=== PATIENT | female | born 1990 | race Asian ===

== ENCOUNTER 2016-10-30 08:49 | Inpatient (IN) | payer OTHER ==
[2016-10-30 10:58] VITALS: BMI 21.4
--- NOTE | 2016-10-30 13:05 | HP ---
COWS - Scale Resting Pulse: 1= [place] 81-100 Sweatin=Flushed/Facial Moisture Restless Observation: 1= Difficult to Sit Still Pupil Size: 0= Normal to Room Light Bone or Joint Aches: 2= Severe Diffuse Aches Runny Nose/ Eye Tearin= Runny Nose/Eyes GI Upset > 30mins: 1= Stomach Cramp Tremor Observation: 2= Slight Tremor Visible Yawning Observation: 2= >3x During Session Anxiety or Irritability: 2=Irritable/Anxious Goose Flesh Skin: 3=Piloerection COWS Score: 18 Admission ROS S - HPI Chief Complaint: i relapsed and need to be here. Allergies/Adverse Reactions: Allergies Allergy/AdvReac Type Severity Reaction Status Date / Time Penicillins Allergy Mild Hives Verified 10/30/16 10:34 History of Present Illness: pt is a 25yr old female with a history of opioid dependence seeking detox for treatment. Exam Limitations: No Limitations - Ebola screening Have you traveled outside of the country in the last 21 days: No Have you had contact with anyone from an Ebola affected area: No Have you been sick,other than usual withdrawal symptoms: No - Review of Systems Constitutional: Chills, Loss of Appetite, Night Sweats EENT: reports: Tearing, Nose Congestion Respiratory: reports: No Symptoms reported Cardiac: reports: Lightheadedness GI: reports: Constipated, Poor Appetite, Poor Fluid Intake : reports: No Symptoms Reported, Other (UTI s/s) Musculoskeletal: reports: No Symptoms Reported Integumentary: reports: Flushing, Sweating Neuro: reports: Tingling Endocrine: reports: Excessive Sweating, Flushing, Intolerance to Cold, Intolerance to Heat Hematology: reports: No Symptoms Reported Psychiatric: reports: Judgement Intact, Mood/Affect Appropiate, Orientated x3, Agitated, Anxious Other Systems: Reviewed and Negative Patient History - Patient Medical History Hx Anemia: Yes (IRON SUPPLEMENTS SPORADICALLY) Hx Asthma: No Hx Chronic Obstructive Pulmonary Disease (COPD): No Hx Cancer: No Hx Cardiac Disorders: No Hx Congestive Heart Failure: No Hx Hypertension: No Hx Hypercholesterolemia: No Hx Pacemaker: No HX Cerebrovascular Accident: No Hx Seizures: No Hx Dementia: No Hx Diabetes: No Hx Gastrointestinal Disorders: Yes (ulcer) Hx Liver Disease: No Hx Genitourinary Disorders: No Hx Sexually Transmitted Disorders: No Hx Renal Disease (ESRD): No Hx Thyroid Disease: No Hx Human Immunodeficiency Virus (HIV): No (NEGATIVE HX, LAST TESTED IN SUMMER 2014) Hx Hepatitis C: No Hx Depression: Yes Hx Suicide Attempt: Yes (tried to cut more 09/2016; denies any S/H ideation) Hx Bipolar Disorder: No Hx Schizophrenia: No - Patient Surgical History Past Surgical History: Yes Hx Neurologic Surgery: No Hx Cataract Extraction: No Hx Cardiac Surgery: No Hx Lung Surgery: No Hx Breast Surgery: No Hx Breast Biopsy: No Hx Abdominal Surgery: Yes (Gastric sleeve 2010) Hx Appendectomy: No Hx Cholecystectomy: No Hx Genitourinary Surgery: No Hx Section: No Hx Orthopedic Surgery: No Hx Hysterectomy: No Anesthesia Reaction: No - PPD History Previous Implant?: Yes Documented Results: Negative w/proof Implanted On Prior R Admission?: Yes Results: 0 mm PPD to be Administered?: Yes - Reproductive History Patient is a Female of Child Bearing Age (11 -55 yrs old): Yes Last Menstrual Period: 09/05/16 Patient : No - Smoking Cessation Smoking history: Current every day smoker Have you smoked in the past 12 months: Yes Aproximately how many cigarettes per day: 10 Cigars Per Day: 0 Hx Chewing Tobacco Use: No Initiated information on smoking cessation: Yes 'Breaking Loose' booklet given: 10/30/16 - Substance & Tx. History Hx Alcohol Use: No Hx Substance Use: Yes Substance Use Type: Marijuana, Opiates Hx Substance Use Treatment: Yes - Substances Abused Percocet Route: Oral Frequency: Daily Amount used: 7 tabs. (10 mg.) Age of first use: 20 Date of Last Use: 10/30/16 Marijuana Route: Smoking Frequency: Daily Amount used: $10 Age of first use: 14 Date of Last Use: 10/29/16 Ambien Route: Oral Frequency: 1-2 times per week Amount used: 3 tabs. (10 mg.) Age of first use: 21 Date of Last Use: 10/24/16 Family Disease History - Family Disease History Family Disease History: Diabetes: Father (htn), Mother (htn , thyroid disease ) Admission Physical Exam BHS - Vital Signs Vital Signs: Vital Signs - 24 hr 10/30/16 10:39 Temperature 97.9 F Pulse Rate 94 H Respiratory 18 Rate Blood Pressure 127/75 - Physical General Appearance: Yes: Appropriately Dressed, Mild Distress, Thin, Tremorous, Irritable, Sweating, Anxious HEENTM: Yes: Normal Voice Respiratory: Yes: Lungs Clear, Normal Breath Sounds, No Respiratory Distress Neck: Yes: No masses,lesions,Nodules Breast: Yes: Within Normal Limits Cardiology: Yes: Regular Rhythm, Regular Rate, S1, S2 Abdominal: Yes: Normal Bowel Sounds, Non Tender, Soft Genitourinary: Yes: Within Normal Limits Back: Yes: Normal Inspection Musculoskeletal: Yes: full range of Motion Extremities: Yes: Normal Capillary Refill, Normal Inspection, Tremors Neurological: Yes: Fully Oriented, Alert, Normal Response Integumentary: Yes: Normal Color Lymphatic: Yes: Within Normal Limits - Diagnostic (1) Opioid dependence with withdrawal Current Visit: Yes Status: Chronic (2) Cannabis dependence, uncomplicated Current Visit: Yes Status: Chronic (3) GERD (gastroesophageal reflux disease) Current Visit: Yes Status: Chronic Qualifiers: Esophagitis presence: without esophagitis Qualified Code(s): K21.9 - Gastro-esophageal reflux disease without esophagitis (4) Nicotine dependence Current Visit: Yes Status: Chronic Qualifiers: Nicotine product type: cigarettes Substance use status: uncomplicated Qualified Code(s): F17.210 - Nicotine dependence, cigarettes, uncomplicated (5) S/P bariatric surgery Current Visit: No Status: Suspected (6) UTI (urinary tract infection) Current Visit: Yes Status: Acute Qualifiers: Encounter type: initial encounter Cleared for Admission [facility] - Detox or Rehab [facility] Level of Care: Medically Managed Detox Regimen/Protocol: Methadone [facility] Breath Alcohol Content Breath Alcohol Content: 0 Urine Pregancy Test - Result Urine Test Results: Negative- NO Line Present Urine Drug Screen - Results Drug Screen Negative: No Urine Drug Screen Results: THC-Marijuana, OPI-Opiates, TCA-Tricyclic Antidepress , OXY-Oxycodone
[2016-10-30] MEDS ORDERED: P-EPHED 60MG/TRIPROLIDI 2.5MG TABLET PO PRN (13:15)
[2016-10-30] MEDS ORDERED: IBUPROFEN 400 MG TABLET (FP) PO PRN (13:15)
[2016-10-30] MEDS ORDERED: guaiFENesin/D-METHORPHAN HB 10 ML UNIT-DOSE CUPS PO PRN (13:15)
[2016-10-30] MEDS ORDERED: MENTHOL/PHENOL 1 EACH UD MM PRN (13:15)
[2016-10-30] MEDS ORDERED: MAGNESIUM HYDROX 2400MG/30ML ORAL SUSPENSION 30 ML CUP PO PRN (13:15)
[2016-10-30] MEDS ORDERED: LOPERAMIDE HCL 2 MG CAPSULE PO PRN (13:15)
[2016-10-30] MEDS ORDERED: MAG HYDROX/AL HYDROX/SIMETH 30 ML UNIT-DOSE CUP PO PRN (13:15)
[2016-10-30] MEDS ORDERED: MAGNESIUM CITRATE 300 ML BOTTLE PO PRN (13:15)
[2016-10-30] MEDS ORDERED: ACETAMINOPHEN 325 MG TABLET (FP) PO PRN (13:15)
[2016-10-30] MEDS ORDERED: METHADONE HCL 10 MG TABLET (FOR DETOX USE ONLY) PO ONE ×2 (14:02→23:00)
[2016-10-30] MEDS: diazePAM 5 MG TABLET PO PRN ×3 (15:05→23:04)
[2016-10-30 19:30] LABS: URINE APPEARANCE CLOUDY; URINE BILIRUBIN NEGATIVE (NEGATIVE); URINE BLOOD NEGATIVE (NEGATIVE); URINE COLOR DKYELLOW; URINE GLUCOSE (UA) NEGATIVE (NEGATIVE); URINE KETONE NEGATIVE (NEGATIVE); URINE LEUK ESTERASE 1+ (NEGATIVE); URINE NITRITE NEGATIVE (NEGATIVE); URINE PROTEIN NEGATIVE (NEGATIVE); URINE UROBILINOGEN NEGATIVE E.U./dl (0.2-1.0)
[2016-10-30 19:44] LABS: URINE BACTERIA RARE /hpf (NONE SEEN); URINE MUCUS MODERATE; URINE RBC 2 /hpf (0-3); URINE WBC 17 /hpf (3-5)
--- NOTE | 2016-10-30 20:05 | PN ---
S Progress Note Note: RECEIVED NURSE CALL PATIENT REQUESTS ENSURE BMI 21.5 ENSURE 120 ML BID CONTINUE DETOX
[2016-10-30] MEDS: THIAMINE HCL 100 MG TABLET (FP) PO SCH (23:04)
[2016-10-30] MEDS: diphenhydrAMINE HCL 50 MG CAPSULE PO PRN (23:06)
[2016-10-31] MEDS: diphenhydrAMINE HCL 50 MG CAPSULE PO PRN (01:17)
[2016-10-31] MEDS: diazePAM 5 MG TABLET PO PRN ×5 (03:26→22:26)
--- NOTE | 2016-10-31 09:36 | CONSULT ---
[facility] Psychiatric Consult - Data Date of interview: 10/31/16 Admission source: [facility] Identifying data: This is 25 years old female with no psychiatric hospitalization history intoxicated with: Opioids, Cannabis, Nicotine Substance Abuse History: - Smoking Cessation. Smoking history: Current every day smoker. Have you smoked in the past 12 months: Yes. Aproximately how many cigarettes per day: 10. Cigars Per Day: 0. Hx Chewing Tobacco Use: No. Initiated information on smoking cessation: Yes. 'Breaking Loose' booklet given : 10/30/16. - Substance & Tx. History. Hx Alcohol Use: No. Hx Substance Use: Yes. Substance Use Type: Marijuana, Opiates. Hx Substance Use Treatment: Yes. - Substances Abused. Percocet. Route: Oral. Frequency: Daily. Amount used: 7 tabs. (10 mg.). Age of first use: 20. Date of Last Use: 10/30/16. Marijuana. Route: Smoking. Frequency: Daily. Amount used: $10. Age of first use: 14. Date of Last Use: 10/29/16. Ambien. Route: Oral. Frequency: 1-2 times per week. Amount used: 3 tabs. (10 mg.). Age of first use: 21. Date of Last Use: 10/24/16 Medical History: UTI history, GERD, Bariayric surgery history Psychiatric History: Patient reports insomnia, depression, reports taking prior to admission: Seroquel 100mg po qhs Physical/Sexual Abuse/Trauma History: Denies Additional Comment: Seroquel 100mg po qhs Mental Status Exam - Mental Status Exam Alert and Oriented to: Person Cognitive Function: Fair Patient Appearance: Unkempt Mood: Euthymic Affect: Mood Congruent Patient Behavior: Cooperative Speech Pattern: Appropriate Voice Loudness: Normal Thought Process: Goal Oriented Thought Disorder: Being Controlled Hallucinations: Denies Suicidal Ideation: Denies Homicidal Ideation: Denies Insight/Judgement: Fair Sleep: Difficulty falling asleep Appetite: Weight loss Muscle strength/Tone: Normal Gait/Station: Normal Additional Comments: Seroquel 100mg po qhs Psychiatric Findings - Problem List ([place] 1, 2,3) (1) UTI (urinary tract infection) Current Visit: Yes Status: Acute Qualifiers: Encounter type: initial encounter (2) Cannabis dependence, uncomplicated Current Visit: Yes Status: Chronic (3) Nicotine dependence Current Visit: Yes Status: Chronic Qualifiers: Nicotine product type: cigarettes Substance use status: uncomplicated Qualified Code(s): F17.210 - Nicotine dependence, cigarettes, uncomplicated (4) Opioid dependence with withdrawal Current Visit: Yes Status: Chronic (5) Drug-induced mood disorder Current Visit: Yes Status: Acute - Initial Treatment Plan Initial Treatment Plan: Seroquel 100mg po qhs
[2016-10-31] MEDS ORDERED: METHADONE HCL 10 MG TABLET (FOR DETOX USE ONLY) PO ONE (10:00)
[2016-10-31] MEDS: NICOTINE 21 MG/24 HOURS TOPICAL PATCH TD SCH (10:06)
[2016-10-31] MEDS: PRENATAL VITAMINS W/ FOLIC ACID TABLET (FP) PO SCH (10:06)
[2016-10-31] MEDS: NICOTINE POLACRILEX 4 MG GUM BUC PRN (10:07)
[2016-10-31 10:15] LABS: MCH 30.8 pg (25.7-33.7); MCHC 32.7 g/dl (32.0-36.0); MEAN CELL VOLUME 94.1 fl (80-96); MEAN PLT VOLUME 8.1 fl (7.5-11.1); PLATELET COUNT 187 K/MM3 (134-434); RDW 13.9 % (11.6-15.6); WHITE BLOOD COUNT 5.2 K/mm3 (4.0-10.0)
[2016-10-31 10:57] LABS: ALBUMIN 4.1 g/dl (3.4-5.0); ALK PHOS 56 U/L (45-117); ANION GAP 9 (8-16); BILIRUBIN,TOTAL 0.4 mg/dL (0.2-1.0); CALCIUM 8.9 mg/dL (8.5-10.1); CO2 26 mmol/L (21-32); CREATININE 0.7 mg/dL (0.55-1.02); GLUCOSE,RANDOM 93 mg/dL (74-106); SGOT/AST 12 U/L (15-37); SGPT/ALT 14 U/L (12-78); TOT PROT 7.2 g/dl (6.4-8.2)
[2016-10-31] MEDS ORDERED: LEVOFLOXACIN 500 MG TABLET (FP) PO ONE (11:38)
[2016-10-31 11:53] LABS: HIV 1 & 2 AB NEGATIVE; HIV 1 AGp24 NEGATIVE
--- NOTE | 2016-10-31 12:58 | PN ---
S COWS - Scale Resting Pulse: 0= GA 80 or Below Sweatin=Flushed/Facial Moisture Restless Observation: 1= Difficult to Sit Still Pupil Size: 1= Pupils >than Normal Bone or Joint Aches: 2= Severe Diffuse Aches Runny Nose/ Eye Tearin= Nasal Congestion GI Upset > 30mins: 1= Stomach Cramp Tremor Observation of Outstretched Hands: 1= Tremor [place], Not Seen Yawning Observation: 0= None Anxiety or Irritability: 2=Irritable/Anxious Goose Flesh Skin: 0=Smooth Skin COWS Score: 11 S Progress Note (SOAP) Subjective: interrupted sleep, sweats , shakes, dysuria nausea, left shoulder pains Objective: 10/31/16 12:57 Vital Signs Temperature 97.9 F 10/31/16 09:34 Pulse Rate 79 10/31/16 09:34 Respiratory Rate 18 10/31/16 09:34 Blood Pressure 105/56 10/31/16 09:34 O2 Sat by Pulse Oximetry (%) Laboratory Tests 10/30/16 10/30/16 10/31/16 06:00 14:00 06:00 WBC 5.2 RBC 3.78 Hgb 11.6 Hct 35.6 MCV 94.1 MCHC 32.7 RDW 13.9 Plt Count 187 MPV 8.1 Sodium Potassium Chloride Carbon Dioxide Anion Gap BUN Creatinine Creat Clearance w eGFR Random Glucose Calcium Total Bilirubin AST ALT Alkaline Phosphatase Total Protein Albumin Urine Color Dkyellow Urine Appearance Cloudy Urine pH 5.0 Ur Specific [place] 1.034 Urine Protein Negative Urine Glucose (UA) Negative Urine Ketones Negative Urine Blood Negative Urine Nitrite Negative Urine Bilirubin Negative Urine Urobilinogen Negative Ur Leukocyte Esterase 1+ H Urine RBC 2 Urine WBC 17 Ur Epithelial Cells Many Urine Bacteria Rare Urine Mucus Moderate RPR Titer HIV 1&2 Antibody Screen Negative HIV P24 Antigen Negative 10/31/16 10/31/16 06:00 06:00 WBC RBC Hgb Hct MCV MCHC RDW Plt Count MPV Sodium 141 Potassium 4.0 Chloride 106 Carbon Dioxide 26 Anion Gap 9 BUN 10 D Creatinine 0.7 D Creat Clearance w eGFR > 60 Random Glucose 93 D Calcium 8.9 Total Bilirubin 0.4 D AST 12 L ALT 14 Alkaline Phosphatase 56 Total Protein 7.2 Albumin 4.1 Urine Color Urine Appearance Urine pH Ur Specific [place] Urine Protein Urine Glucose (UA) Urine Ketones Urine Blood Urine Nitrite Urine Bilirubin Urine Urobilinogen Ur Leukocyte Esterase Urine RBC Urine WBC Ur Epithelial Cells Urine Bacteria Urine Mucus RPR Titer Nonreactive HIV 1&2 Antibody Screen HIV P24 Antigen pt aox3 in nad ambulating Assessment: 10/31/16 12:57 withdrawl sx's left shoulder pain uti Plan: cont detox increase fluids levaguin 500mg /d x 3 analgesic balm u/cx
--- NOTE | 2016-10-31 16:18 | EKG ---
Test Reason : Blood Pressure : / mmHG Vent. Rate : 085 BPM Atrial Rate : 085 BPM P-R Int : 152 ms QRS Dur : 102 ms QT Int : 378 ms P-R-T Axes : 046 042 034 degrees QTc Int : 449 ms NORMAL SINUS RHYTHM NORMAL ECG NO PREVIOUS ECGS AVAILABLE Confirmed by JANETTE PATEL MD ([id number]) on 10/31/2016 4:17:54 PM Referred By: Confirmed By:JANETTE PATEL MD
[2016-10-31] MEDS: hydrOXYzine PAMOATE 50 MG CAPSULE (FP) PO PRN ×2 (18:18→22:26)
[2016-10-31] MEDS: QUEtiapine FUMARATE 100 MG TABLET (FP) PO SCH (22:26)
[2016-10-31] MEDS: METHYL SALICYLATE/MENTHOL OINT 30 GM TUBE TP SCH (22:26)
[2016-10-31] MEDS: THIAMINE HCL 100 MG TABLET (FP) PO SCH (22:26)
[2016-11-01] MEDS: diazePAM 5 MG TABLET PO PRN ×5 (03:19→22:48)
[2016-11-01] MEDS: LEVOFLOXACIN 500 MG TABLET (FP) PO SCH (05:47)
[2016-11-01] MEDS: hydrOXYzine PAMOATE 50 MG CAPSULE (FP) PO PRN (05:49)
[2016-11-01] MEDS ORDERED: METHADONE HCL 5 MG TABLET (FOR DETOX USE ONLY) PO ONE (10:00)
[2016-11-01] MEDS: METHYL SALICYLATE/MENTHOL OINT 30 GM TUBE TP SCH ×2 (10:29→22:48)
[2016-11-01] MEDS: PRENATAL VITAMINS W/ FOLIC ACID TABLET (FP) PO SCH (10:29)
[2016-11-01] MEDS: NICOTINE 21 MG/24 HOURS TOPICAL PATCH TD SCH (10:30)
[2016-11-01 11:13] LABS: URINE APPEARANCE CLEAR; URINE BILIRUBIN NEGATIVE (NEGATIVE); URINE BLOOD NEGATIVE (NEGATIVE); URINE COLOR STRAW; URINE GLUCOSE (UA) NEGATIVE (NEGATIVE); URINE KETONE NEGATIVE (NEGATIVE); URINE LEUK ESTERASE NEGATIVE (NEGATIVE); URINE NITRITE NEGATIVE (NEGATIVE); URINE PROTEIN NEGATIVE (NEGATIVE); URINE UROBILINOGEN NEGATIVE E.U./dl (0.2-1.0)
--- NOTE | 2016-11-01 13:53 | PN ---
BHS COWS - Scale Resting Pulse: 1= GA 81-100 Sweatin=Flushed/Facial Moisture Restless Observation: 1= Difficult to Sit Still Pupil Size: 0= Normal to Room Light Bone or Joint Aches: 2= Severe Diffuse Aches Runny Nose/ Eye Tearin= None GI Upset > 30mins: 1= Stomach Cramp Tremor Observation of Outstretched Hands: 2= Slight Tremor Visible Yawning Observation: 0= None Anxiety or Irritability: 2=Irritable/Anxious Goose Flesh Skin: 3=Piloerection COWS Score: 14 BHS Progress Note (SOAP) Subjective: Tremors, Anxious, Interrupted sleep, Sweating, Body Aches, Poor Appetite. Objective: PT. A & O X 3, OBSERVED AMBULATING ON UNIT. 11/01/16 13:53 Vital Signs Temperature 98.2 F 11/01/16 10:36 Pulse Rate 92 H 11/01/16 10:36 Respiratory Rate 16 11/01/16 10:36 Blood Pressure 108/68 11/01/16 10:36 O2 Sat by Pulse Oximetry (%) Laboratory Last Values WBC 5.2 K/mm3 (4.0-10.0) 10/31/16 06:00 RBC 3.78 M/mm3 (3.60-5.2) 10/31/16 06:00 Hgb 11.6 GM/dL (10.7-15.3) 10/31/16 06:00 Hct 35.6 % (32.4-45.2) 10/31/16 06:00 MCV 94.1 fl (80-96) 10/31/16 06:00 MCHC 32.7 g/dl (32.0-36.0) 10/31/16 06:00 RDW 13.9 % (11.6-15.6) 10/31/16 06:00 Plt Count 187 K/MM3 (134-434) 10/31/16 06:00 MPV 8.1 fl (7.5-11.1) 10/31/16 06:00 Sodium 141 mmol/L (136-145) 10/31/16 06:00 Potassium 4.0 mmol/L (3.5-5.1) 10/31/16 06:00 Chloride 106 mmol/L (98-107) 10/31/16 06:00 Carbon Dioxide 26 mmol/L (21-32) 10/31/16 06:00 Anion Gap 9 (8-16) 10/31/16 06:00 BUN 10 mg/dL (7-18) D 10/31/16 06:00 Creatinine 0.7 mg/dL (0.55-1.02) D 10/31/16 06:00 Creat Clearance w eGFR > 60 (>60) 10/31/16 06:00 Random Glucose 93 mg/dL (74-106) D 10/31/16 06:00 Calcium 8.9 mg/dL (8.5-10.1) 10/31/16 06:00 Total Bilirubin 0.4 mg/dL (0.2-1.0) D 10/31/16 06:00 AST 12 U/L (15-37) L 10/31/16 06:00 ALT 14 U/L (12-78) 10/31/16 06:00 Alkaline Phosphatase 56 U/L (45-117) 10/31/16 06:00 Total Protein 7.2 g/dl (6.4-8.2) 10/31/16 06:00 Albumin 4.1 g/dl (3.4-5.0) 10/31/16 06:00 Urine Color Straw 11/01/16 07:00 Urine Appearance Clear 11/01/16 07:00 Urine pH 7.0 (5.0-8.0) D 11/01/16 07:00 Ur Specific [place] 1.008 (1.001-1.035) 11/01/16 07:00 Urine Protein Negative (NEGATIVE) 11/01/16 07:00 Urine Glucose (UA) Negative (NEGATIVE) 11/01/16 07:00 Urine Ketones Negative (NEGATIVE) 11/01/16 07:00 Urine Blood Negative (NEGATIVE) 11/01/16 07:00 Urine Nitrite Negative (NEGATIVE) 11/01/16 07:00 Urine Bilirubin Negative (NEGATIVE) 11/01/16 07:00 Urine Urobilinogen Negative E.U./dl (0.2-1.0) 11/01/16 07:00 Ur Leukocyte Esterase Negative (NEGATIVE) 11/01/16 07:00 Urine RBC 2 /hpf (0-3) 10/30/16 14:00 Urine WBC 17 /hpf (3-5) 10/30/16 14:00 Ur Epithelial Cells Many /hpf (FEW) 10/30/16 14:00 Urine Bacteria Rare /hpf (NONE SEEN) 10/30/16 14:00 Urine Mucus Moderate 10/30/16 14:00 RPR Titer Nonreactive (NONREACTIVE) 10/31/16 06:00 HIV 1&2 Antibody Screen Negative 10/30/16 06:00 HIV P24 Antigen Negative 10/30/16 06:00 LABS NOTED. Assessment: 11/01/16 13:54 WITHDRAWAL SYMPTOMS. Plan: CONTINUE DETOX.
[2016-11-01] MEDS: THIAMINE HCL 100 MG TABLET (FP) PO SCH (22:48)
[2016-11-01] MEDS: CYCLOBENZAPRINE HCL 10 MG TABLET (FP) PO PRN (22:48)
[2016-11-01] MEDS: QUEtiapine FUMARATE 100 MG TABLET (FP) PO SCH (22:48)
[2016-11-02] MEDS: diazePAM 5 MG TABLET PO PRN ×2 (05:54→11:01)
[2016-11-02] MEDS: CYCLOBENZAPRINE HCL 10 MG TABLET (FP) PO PRN ×2 (05:54→22:51)
[2016-11-02] MEDS: LEVOFLOXACIN 500 MG TABLET (FP) PO SCH (05:54)
[2016-11-02] MEDS ORDERED: METHADONE HCL 5 MG TABLET (FOR DETOX USE ONLY) PO ONE (10:00)
[2016-11-02] MEDS: PRENATAL VITAMINS W/ FOLIC ACID TABLET (FP) PO SCH (11:02)
[2016-11-02] MEDS: METHYL SALICYLATE/MENTHOL OINT 30 GM TUBE TP SCH ×2 (11:03→23:20)
[2016-11-02] MEDS: NICOTINE 21 MG/24 HOURS TOPICAL PATCH TD SCH (11:03)
[2016-11-02] MEDS: NICOTINE POLACRILEX 4 MG GUM BUC PRN ×2 (11:07→13:52)
--- NOTE | 2016-11-02 13:04 | PN ---
S Progress Note (SOAP) Subjective: ALERT,IRRITABLE,ANXIOUS,INTERRUPTED SLEEP,PAIN IN THE BODY Objective: 11/02/16 13:02 Vital Signs Temperature 96.6 F L 11/02/16 10:31 Pulse Rate 87 11/02/16 10:31 Respiratory Rate 18 11/02/16 10:31 Blood Pressure 98/60 11/02/16 10:31 O2 Sat by Pulse Oximetry (%) Laboratory Last Values WBC 5.2 K/mm3 (4.0-10.0) 10/31/16 06:00 RBC 3.78 M/mm3 (3.60-5.2) 10/31/16 06:00 Hgb 11.6 GM/dL (10.7-15.3) 10/31/16 06:00 Hct 35.6 % (32.4-45.2) 10/31/16 06:00 MCV 94.1 fl (80-96) 10/31/16 06:00 MCHC 32.7 g/dl (32.0-36.0) 10/31/16 06:00 RDW 13.9 % (11.6-15.6) 10/31/16 06:00 Plt Count 187 K/MM3 (134-434) 10/31/16 06:00 MPV 8.1 fl (7.5-11.1) 10/31/16 06:00 Sodium 141 mmol/L (136-145) 10/31/16 06:00 Potassium 4.0 mmol/L (3.5-5.1) 10/31/16 06:00 Chloride 106 mmol/L (98-107) 10/31/16 06:00 Carbon Dioxide 26 mmol/L (21-32) 10/31/16 06:00 Anion Gap 9 (8-16) 10/31/16 06:00 BUN 10 mg/dL (7-18) D 10/31/16 06:00 Creatinine 0.7 mg/dL (0.55-1.02) D 10/31/16 06:00 Creat Clearance w eGFR > 60 (>60) 10/31/16 06:00 Random Glucose 93 mg/dL (74-106) D 10/31/16 06:00 Calcium 8.9 mg/dL (8.5-10.1) 10/31/16 06:00 Total Bilirubin 0.4 mg/dL (0.2-1.0) D 10/31/16 06:00 AST 12 U/L (15-37) L 10/31/16 06:00 ALT 14 U/L (12-78) 10/31/16 06:00 Alkaline Phosphatase 56 U/L (45-117) 10/31/16 06:00 Total Protein 7.2 g/dl (6.4-8.2) 10/31/16 06:00 Albumin 4.1 g/dl (3.4-5.0) 10/31/16 06:00 Urine Color Straw 11/01/16 07:00 Urine Appearance Clear 11/01/16 07:00 Urine pH 7.0 (5.0-8.0) D 11/01/16 07:00 Ur Specific [place] 1.008 (1.001-1.035) 11/01/16 07:00 Urine Protein Negative (NEGATIVE) 11/01/16 07:00 Urine Glucose (UA) Negative (NEGATIVE) 11/01/16 07:00 Urine Ketones Negative (NEGATIVE) 11/01/16 07:00 Urine Blood Negative (NEGATIVE) 11/01/16 07:00 Urine Nitrite Negative (NEGATIVE) 11/01/16 07:00 Urine Bilirubin Negative (NEGATIVE) 11/01/16 07:00 Urine Urobilinogen Negative E.U./dl (0.2-1.0) 11/01/16 07:00 Ur Leukocyte Esterase Negative (NEGATIVE) 11/01/16 07:00 Urine RBC 2 /hpf (0-3) 10/30/16 14:00 Urine WBC 17 /hpf (3-5) 10/30/16 14:00 Ur Epithelial Cells Many /hpf (FEW) 10/30/16 14:00 Urine Bacteria Rare /hpf (NONE SEEN) 10/30/16 14:00 Urine Mucus Moderate 10/30/16 14:00 RPR Titer Nonreactive (NONREACTIVE) 10/31/16 06:00 HIV 1&2 Antibody Screen Negative 10/30/16 06:00 HIV P24 Antigen Negative 10/30/16 06:00 Assessment: 11/02/16 13:03 WITHDRAWAL SYMPTOM Plan: CONTINUE DETOX
[2016-11-02] MEDS ORDERED: cloNIDine HCL 0.1 MG TABLET PO ONE (14:30)
[2016-11-02] MEDS: hydrOXYzine PAMOATE 50 MG CAPSULE (FP) PO PRN ×2 (18:10→22:51)
[2016-11-02] MEDS: THIAMINE HCL 100 MG TABLET (FP) PO SCH (22:50)
[2016-11-02] MEDS: QUEtiapine FUMARATE 100 MG TABLET (FP) PO SCH (22:51)
[2016-11-02] MEDS: cloNIDine HCL 0.1 MG TABLET PO SCH (22:51)
[2016-11-03] MEDS ORDERED: METHADONE HCL 10 MG TABLET (FOR DETOX USE ONLY) PO ONE (10:00)
[2016-11-03] MEDS: PRENATAL VITAMINS W/ FOLIC ACID TABLET (FP) PO SCH (10:49)
[2016-11-03] MEDS: cloNIDine HCL 0.1 MG TABLET PO SCH ×2 (10:50→22:21)
[2016-11-03] MEDS: METHYL SALICYLATE/MENTHOL OINT 30 GM TUBE TP SCH ×2 (10:50→22:21)
[2016-11-03] MEDS: NICOTINE 21 MG/24 HOURS TOPICAL PATCH TD SCH (10:50)
[2016-11-03] MEDS: NICOTINE POLACRILEX 4 MG GUM BUC PRN (10:53)
--- NOTE | 2016-11-03 13:33 | PN ---
S Progress Note (SOAP) Subjective: alert,irritable,anxious,interrupted sleep Objective: 11/03/16 13:33 Vital Signs Temperature 97.7 F 11/03/16 09:40 Pulse Rate 87 11/03/16 09:40 Respiratory Rate 16 11/03/16 09:40 Blood Pressure 111/63 11/03/16 09:40 O2 Sat by Pulse Oximetry (%) Assessment: 11/03/16 13:33 withdrawal symptom Plan: continue detox,discharge in am
[2016-11-03] MEDS: hydrOXYzine PAMOATE 50 MG CAPSULE (FP) PO PRN (18:36)
[2016-11-03] MEDS: THIAMINE HCL 100 MG TABLET (FP) PO SCH (22:20)
[2016-11-03] MEDS: CYCLOBENZAPRINE HCL 10 MG TABLET (FP) PO PRN (22:21)
[2016-11-03] MEDS: QUEtiapine FUMARATE 100 MG TABLET (FP) PO SCH (22:21)
[2016-11-03 23:08] VITALS: TEMP 98.2
[2016-11-04] MEDS ORDERED: METHADONE HCL 5 MG TABLET (FOR DETOX USE ONLY) PO ONE (06:00)
[2016-11-04] MEDS: hydrOXYzine PAMOATE 50 MG CAPSULE (FP) PO PRN (06:20)
[2016-11-04] MEDS: CYCLOBENZAPRINE HCL 10 MG TABLET (FP) PO PRN (06:20)
[2016-11-04 06:55] VITALS: BP 98/63; PULSE 67
--- NOTE | 2016-11-04 09:25 | PN ---
S Progress Note (SOAP) Subjective: ALERT,NO COMPLAINT Objective: 11/04/16 09:23 Vital Signs Temperature 98.2 F 11/04/16 06:54 Pulse Rate 67 11/04/16 06:54 Respiratory Rate 16 11/04/16 06:54 Blood Pressure 98/63 11/04/16 06:54 O2 Sat by Pulse Oximetry (%) Assessment: 11/04/16 09:24 DETOX COMPLETED.NO WITHDRAWAL SYMPTOM Plan: DISCHARGE TODAY,FOLLOW UP WITH AFTER [facility] PROGRAM ARRANGEMENT
--- NOTE | 2016-11-04 09:29 | DS ---
[facility] Detox Discharge Summary Admission Date: 10/30/16 Discharge Date: 11/04/16 - History Present History: Alcohol Dependence, Cannabis Dependence, Opioid Dependence Additional Comments: FOLLOW UP WITH AFTER [facility] PROGRAM ARRANGEMENT AND PMD FOR MEDICAL PROBLEM Pertinent Past History: GERD UTI NICOTINE DEPENDENCE S/P BARIATRIC SURGERY ANEMIA HISTORY - Physical Exam Results Vital Signs: Vital Signs Temperature 98.2 F 11/04/16 06:54 Pulse Rate 67 11/04/16 06:54 Respiratory Rate 16 11/04/16 06:54 Blood Pressure 98/63 11/04/16 06:54 O2 Sat by Pulse Oximetry (%) Pertinent Admission Physical Exam Findings: WITHDRAWAL SYMPTOM - Treatment Hospital Course: Detox Protocol Followed, Detoxed Safely, Responded well, Discharged Condition Good Patient has Accepted a Rehab Referral to: DECLINED - Medication Discharge Medications: Ambulatory Orders Quetiapine Fumarate [Seroquel -] 100 mg PO HS 10/30/16 Quetiapine Fumarate [Seroquel] 100 mg PO HS #30 tablet 10/31/16 - Diagnosis (1) Drug-induced mood disorder Current Visit: Yes Status: Acute (2) UTI (urinary tract infection) Current Visit: Yes Status: Acute Qualifiers: Encounter type: initial encounter (3) Cannabis dependence, uncomplicated Current Visit: Yes Status: Chronic (4) GERD (gastroesophageal reflux disease) Current Visit: Yes Status: Chronic Qualifiers: Esophagitis presence: without esophagitis Qualified Code(s): K21.9 - Gastro-esophageal reflux disease without esophagitis (5) Nicotine dependence Current Visit: Yes Status: Chronic Qualifiers: Nicotine product type: cigarettes Substance use status: uncomplicated Qualified Code(s): F17.210 - Nicotine dependence, cigarettes, uncomplicated (6) Opioid dependence with withdrawal Current Visit: Yes Status: Chronic (7) S/P bariatric surgery Current Visit: No Status: Suspected - AMA Did Patient Leave Against Medical Advice: No
== END 2016-11-04 09:47 | disposition home or self-care (01) | DRG 897 ==
LOC: YASAS 08:49 → Y6N 11:28
PROVIDERS: ADMIT Internal Medicine Addiction Medicine; ATTEND Internal Medicine Addiction Medicine
PROC: HZ2ZZZZ Detoxification Services for Substance Abuse Treatment (ICD-10-PCS; principal; 2016-10-30)
DX: F11.23 Opioid dependence with withdrawal (principal); N39.0 Urinary tract infection, site not specified; F12.20 Cannabis dependence, uncomplicated; F17.210 Nicotine dependence, cigarettes, uncomplicated; F19.24 Other psychoactive substance dependence with psychoactive substance-induced mood disorder; K21.9 Gastro-esophageal reflux disease without esophagitis; M25.512 Pain in left shoulder; Z98.84 Bariatric surgery status; Z91.5 Personal history of self-harm; Z86.2 Personal history of diseases of the blood and blood-forming organs and certain disorders involving the immune mechanism
CPT/HCPCS: 36415; 80053; 81003; 81015; 85027; 86593; 87086; 87389; 93005; 93010

== ENCOUNTER 2017-05-24 15:58 | Inpatient (IN) | payer OTHER ==
[2017-05-24 16:33] VITALS: BMI 21.6
--- NOTE | 2017-05-24 17:23 | HP ---
COWS - Scale Resting Pulse: 1= [place] 81-100 Sweatin=Flushed/Facial Moisture Restless Observation: 1= Difficult to Sit Still Pupil Size: 0= Normal to Room Light Bone or Joint Aches: 2= Severe Diffuse Aches Runny Nose/ Eye Tearin= Nasal Congestion GI Upset > 30mins: 2= Nausea/Diarrhea Tremor Observation: 2= Slight Tremor Visible Yawning Observation: 1= 1-2x During Session Anxiety or Irritability: 2=Irritable/Anxious Goose Flesh Skin: 3=Piloerection COWS Score: 17 Admission ROS BHS - HPI Chief Complaint: I need detox from opioids Allergies/Adverse Reactions: Allergies Allergy/AdvReac Type Severity Reaction Status Date / Time Penicillins Allergy Mild Hives Verified 10/30/16 10:34 History of Present Illness: 26 y/o female with opiate dependence presents for detox. Her last treatment was in October 2016. She reports relapsing after her mom convinced her to go back to drugs. Exam Limitations: No Limitations - Ebola screening Have you traveled outside of the country in the last 21 days: No Have you had contact with anyone from an Ebola affected area: No Have you been sick,other than usual withdrawal symptoms: No Do you have a fever: No - Review of Systems Constitutional: Loss of Appetite, Changes in sleep, Unintentional Wgt. Loss EENT: reports: Nose Congestion, Dental Problems Respiratory: reports: Cough, Shortness of Breath Cardiac: reports: Chest Pain, Lightheadedness, Palpitations GI: reports: Diarrhea, Nausea, Poor Appetite, Vomiting : reports: Frequency, Urgency Musculoskeletal: reports: Back Pain, Joint Pain, Muscle Pain Integumentary: reports: No Symptoms Reported Neuro: reports: Headache, Numbness, Tingling Endocrine: reports: Excessive Sweating, Intolerance to Cold, Unexplained Weight Loss Hematology: reports: Anemia Psychiatric: reports: Anxious, Depressed Other Systems: Reviewed and Negative Patient History - Patient Medical History Hx Anemia: Yes Hx Asthma: No Hx Chronic Obstructive Pulmonary Disease (COPD): No Hx Cancer: No Hx Cardiac Disorders: No Hx Congestive Heart Failure: No Hx Hypertension: No Hx Hypercholesterolemia: No Hx Pacemaker: No HX Cerebrovascular Accident: No Hx Seizures: No Hx Dementia: No Hx Diabetes: No Hx Gastrointestinal Disorders: Yes (ulcers) Hx Liver Disease: No Hx Genitourinary Disorders: No Hx Sexually Transmitted Disorders: No Hx Renal Disease (ESRD): No Hx Thyroid Disease: No Hx Human Immunodeficiency Virus (HIV): No Hx Hepatitis C: No Hx Depression: Yes Hx Suicide Attempt: Yes (remote hx) Hx Bipolar Disorder: No Hx Schizophrenia: No - Patient Surgical History Past Surgical History: Yes Hx Neurologic Surgery: No Hx Cataract Extraction: No Hx Cardiac Surgery: No Hx Lung Surgery: No Hx Breast Surgery: No Hx Breast Biopsy: No Hx Abdominal Surgery: Yes (Gastric sleeve 2010) Hx Appendectomy: No Hx Cholecystectomy: No Hx Genitourinary Surgery: No Hx Section: No Hx Orthopedic Surgery: No Hx Hysterectomy: No Anesthesia Reaction: No - PPD History Documented Results: Negative w/proof Date: 11/01/16 Results: 0 mm PPD to be Administered?: No - Reproductive History Patient is a Female of Child Bearing Age (11 -55 yrs old): Yes Last Menstrual Period: 04/18/17 Patient : No - Smoking Cessation Smoking history: Current every day smoker Have you smoked in the past 12 months: Yes Aproximately how many cigarettes per day: 10 Cigars Per Day: 0 Hx Chewing Tobacco Use: No Initiated information on smoking cessation: Yes 'Breaking Loose' booklet given: 05/24/17 - Substance & Tx. History Hx Alcohol Use: No Hx Substance Use: Yes Substance Use Type: Opiates Hx Substance Use Treatment: Yes - Substances Abused percocet Route: Oral Frequency: Daily Amount used: 200mg Age of first use: 22 Date of Last Use: 05/24/17 Khat Route: Smoking Frequency: Daily Amount used: 5 joints Age of first use: 15 Date of Last Use: 05/24/17 Family Disease History - Family Disease History Family Disease History: Diabetes: Father (htn), Mother (htn , thyroid disease, opiate dependent) Admission Physical Exam BHS - Vital Signs Vital Signs: Vital Signs - 24 hr 05/24/17 16:18 Temperature 98.4 F Pulse Rate 90 Respiratory 20 Rate Blood Pressure 138/78 - Physical General Appearance: Yes: No Apparent Distress HEENTM: Yes: EOMI, Hearing grossly Normal, Normal ENT Inspection, Normocephalic , Normal Voice, KEM Respiratory: Yes: Chest Non-Tender, Normal Breath Sounds, No Respiratory Distress, No Accessory Muscle Use Neck: Yes: No masses,lesions,Nodules, Supple Breast: Yes: Breast Exam Deferred Cardiology: Yes: Regular Rhythm, Regular Rate, S1, S2 Abdominal: Yes: Normal Bowel Sounds, Non Tender, Soft Genitourinary: Yes: Frequency, Hesitency Back: Yes: Normal Inspection Musculoskeletal: Yes: full range of Motion, Gait Steady, Pelvis Stable Extremities: Yes: Normal Capillary Refill, Non-Tender, Tremors Neurological: Yes: Alert, Motor Strength 5/5, Normal Mood/Affect, Normal Response Integumentary: Yes: Normal Color, Warm Lymphatic: Yes: Within Normal Limits - Diagnostic (1) Cannabis dependence, uncomplicated Current Visit: Yes Status: Acute (2) Nicotine dependence Current Visit: Yes Status: Acute Qualifiers: Nicotine product type: cigarettes Substance use status: uncomplicated Qualified Code(s): F17.210 - Nicotine dependence, cigarettes, uncomplicated (3) Opioid dependence with withdrawal Current Visit: Yes Status: Acute Cleared for Admission [facility] - Detox or Rehab [facility] Level of Care: Medically Managed Detox Regimen/Protocol: Methadone [facility] Breath Alcohol Content Breath Alcohol Content: 0 Urine Pregancy Test - Result Urine Test Results: Negative- NO Line Present Urine Drug Screen - Results Drug Screen Negative: No Urine Drug Screen Results: THC-Marijuana, OXY-Oxycodone
[2017-05-24] MEDS ORDERED: MAG HYDROX/AL HYDROX/SIMETH 30 ML UNIT-DOSE CUP PO PRN (17:37)
[2017-05-24] MEDS ORDERED: guaiFENesin/D-METHORPHAN HB 10 ML UNIT-DOSE CUPS PO PRN (17:37)
[2017-05-24] MEDS ORDERED: ACETAMINOPHEN 325 MG TABLET (FP) PO PRN (17:37)
[2017-05-24] MEDS ORDERED: MAGNESIUM HYDROX 2400MG/30ML ORAL SUSPENSION 30 ML CUP PO PRN (17:37)
[2017-05-24] MEDS ORDERED: LOPERAMIDE HCL 2 MG CAPSULE PO PRN (17:37)
[2017-05-24] MEDS ORDERED: MAGNESIUM CITRATE 300 ML BOTTLE PO PRN (17:37)
[2017-05-24] MEDS ORDERED: MENTHOL/PHENOL 1 EACH UD MM PRN (17:37)
[2017-05-24] MEDS ORDERED: METHADONE HCL 10 MG TABLET (FOR DETOX USE ONLY) PO ONE ×2 (17:37→23:00)
[2017-05-24] MEDS ORDERED: IBUPROFEN 400 MG TABLET (FP) PO PRN (17:37)
[2017-05-24] MEDS ORDERED: P-EPHED 60MG/TRIPROLIDI 2.5MG TABLET PO PRN (17:37)
[2017-05-24] MEDS: diazePAM 5 MG TABLET PO PRN ×2 (18:41→22:34)
[2017-05-24] MEDS: NICOTINE 14 MG/24 HOURS TOPICAL PATCH TD SCH (18:41)
--- NOTE | 2017-05-24 20:55 | PN ---
[facility] Progress Note Note: Psychiatry Attending's note (gis consultant) : Asked by nurse to enter order for seroquel. Medications reviewed.Previous records read. Noted script for seroquel from Dr Alex (10/2016). Met briefly with patient,at 7:40 pm,on . In the presence of HALLE Marroquin. Patient indicates that she takes seroquel for insomnia. Last taken yesterday.Seroquel 50mg po hs.Ordered. Side effects/benefits discussed with patient.Agrees with plan.
[2017-05-24] MEDS: QUEtiapine FUMARATE 50 MG TABLET PO SCH (22:34)
[2017-05-24] MEDS: diphenhydrAMINE HCL 50 MG CAPSULE PO PRN (22:34)
[2017-05-24] MEDS: THIAMINE HCL 100 MG TABLET (FP) PO SCH (22:35)
[2017-05-25 00:22] LABS: URINE APPEARANCE SLCLOUDY; URINE BILIRUBIN NEGATIVE (NEGATIVE); URINE BLOOD NEGATIVE (NEGATIVE); URINE COLOR YELLOW; URINE GLUCOSE (UA) NEGATIVE (NEGATIVE); URINE KETONE NEGATIVE (NEGATIVE); URINE LEUK ESTERASE NEGATIVE (NEGATIVE); URINE NITRITE NEGATIVE (NEGATIVE); URINE PROTEIN NEGATIVE (NEGATIVE); URINE UROBILINOGEN NEGATIVE mg/dL (0.2-1.0)
[2017-05-25] MEDS: diphenhydrAMINE HCL 50 MG CAPSULE PO PRN ×2 (01:23→22:18)
[2017-05-25] MEDS: diazePAM 5 MG TABLET PO PRN ×6 (02:28→22:18)
[2017-05-25 09:49] LABS: MCH 32.1 pg (25.7-33.7); MCHC 33.6 g/dl (32.0-36.0); MEAN CELL VOLUME 95.3 fl (80-96); MEAN PLT VOLUME 7.5 fl (7.5-11.1); PLATELET COUNT 208 K/MM3 (134-434); RDW 13.8 % (11.6-15.6); WHITE BLOOD COUNT 7.1 K/mm3 (4.0-10.0)
--- NOTE | 2017-05-25 09:55 | EKG ---
Test Reason : Blood Pressure : / mmHG Vent. Rate : 087 BPM Atrial Rate : 087 BPM P-R Int : 144 ms QRS Dur : 098 ms QT Int : 376 ms P-R-T Axes : 045 024 005 degrees QTc Int : 452 ms NORMAL SINUS RHYTHM NORMAL ECG WHEN COMPARED WITH ECG OF 30-OCT-2016 14:51, NO SIGNIFICANT CHANGE WAS FOUND Confirmed by MD JANETH, LEATHA ([id number]) on 05/25/2017 9:54:36 AM Referred By: Confirmed By:LEATHA FOWLER MD
[2017-05-25] MEDS ORDERED: METHADONE HCL 10 MG TABLET (FOR DETOX USE ONLY) PO ONE (10:00)
[2017-05-25 10:13] LABS: ALBUMIN 3.4 g/dl (3.4-5.0); ALK PHOS 50 U/L (45-117); ANION GAP 6 (8-16); BILIRUBIN,TOTAL 0.4 mg/dL (0.2-1.0); CALCIUM 8.9 mg/dL (8.5-10.1); CO2 29 mmol/L (21-32); CREATININE 0.6 mg/dL (0.55-1.02); GLUCOSE,RANDOM 88 mg/dL (74-106); SGOT/AST 12 U/L (15-37); SGPT/ALT 17 U/L (12-78); TOT PROT 6.3 g/dl (6.4-8.2)
[2017-05-25] MEDS: PRENATAL VITAMINS W/ FOLIC ACID TABLET (FP) PO SCH (10:41)
[2017-05-25] MEDS: NICOTINE 14 MG/24 HOURS TOPICAL PATCH TD SCH (10:43)
[2017-05-25] MEDS: hydrOXYzine PAMOATE 50 MG CAPSULE (FP) PO PRN (13:05)
[2017-05-25] MEDS: NICOTINE POLACRILEX 2 MG GUM BUC PRN ×2 (14:49→18:40)
--- NOTE | 2017-05-25 15:53 | PN ---
BHS COWS - Scale Resting Pulse: 1= [place] 81-100 Sweatin=Flushed/Facial Moisture Restless Observation: 1= Difficult to Sit Still Pupil Size: 0= Normal to Room Light Bone or Joint Aches: 2= Severe Diffuse Aches Runny Nose/ Eye Tearin= Runny Nose/Eyes GI Upset > 30mins: 2= Nausea/Diarrhea Tremor Observation of Outstretched Hands: 1= Tremor [place], Not Seen Yawning Observation: 1= 1-2x During Session Anxiety or Irritability: 2=Irritable/Anxious Goose Flesh Skin: 0=Smooth Skin COWS Score: 14 S Progress Note (SOAP) Subjective: Anxiety,tremors,sweating,interrupted sleep,restless Objective: 05/25/17 15:52 Vital Signs - 8 hr 05/25/17 05/25/17 10:00 15:07 Temperature 98.2 F 97.1 F L Pulse Rate 71 81 Respiratory 16 18 Rate Blood Pressure 106/56 98/70 Laboratory Last Values WBC 7.1 K/mm3 (4.0-10.0) D 05/25/17 07:50 RBC 3.21 M/mm3 (3.60-5.2) L 05/25/17 07:50 Hgb 10.3 GM/dL (10.7-15.3) L D 05/25/17 07:50 Hct 30.6 % (32.4-45.2) L 05/25/17 07:50 MCV 95.3 fl (80-96) 05/25/17 07:50 MCH 32.1 pg (25.7-33.7) 05/25/17 07:50 MCHC 33.6 g/dl (32.0-36.0) 05/25/17 07:50 RDW 13.8 % (11.6-15.6) 05/25/17 07:50 Plt Count 208 K/MM3 (134-434) 05/25/17 07:50 MPV 7.5 fl (7.5-11.1) 05/25/17 07:50 Sodium 140 mmol/L (136-145) 05/25/17 07:50 Potassium 4.1 mmol/L (3.5-5.1) 05/25/17 07:50 Chloride 105 mmol/L (98-107) 05/25/17 07:50 Carbon Dioxide 29 mmol/L (21-32) 05/25/17 07:50 Anion Gap 6 (8-16) L 05/25/17 07:50 BUN 8 mg/dL (7-18) 05/25/17 07:50 Creatinine 0.6 mg/dL (0.55-1.02) 05/25/17 07:50 Creat Clearance w eGFR > 60 (>60) 05/25/17 07:50 Random Glucose 88 mg/dL (74-106) 05/25/17 07:50 Calcium 8.9 mg/dL (8.5-10.1) 05/25/17 07:50 Total Bilirubin 0.4 mg/dL (0.2-1.0) 05/25/17 07:50 AST 12 U/L (15-37) L 05/25/17 07:50 ALT 17 U/L (12-78) D 05/25/17 07:50 Alkaline Phosphatase 50 U/L (45-117) 05/25/17 07:50 Total Protein 6.3 g/dl (6.4-8.2) L 05/25/17 07:50 Albumin 3.4 g/dl (3.4-5.0) 05/25/17 07:50 Urine Color Yellow 05/24/17 21:27 Urine Appearance Slcloudy 05/24/17 21:27 Urine pH 6.0 (5.0-8.0) 05/24/17 21:27 Ur Specific [place] 1.020 (1.005-1.025) 05/24/17 21:27 Urine Protein Negative (NEGATIVE) 05/24/17 21:27 Urine Glucose (UA) Negative (NEGATIVE) 05/24/17 21:27 Urine Ketones Negative (NEGATIVE) 05/24/17 21:27 Urine Blood Negative (NEGATIVE) 05/24/17 21:27 Urine Nitrite Negative (NEGATIVE) 05/24/17 21:27 Urine Bilirubin Negative (NEGATIVE) 05/24/17 21:27 Urine Urobilinogen Negative mg/dL (0.2-1.0) 05/24/17 21:27 Ur Leukocyte Esterase Negative (NEGATIVE) 05/24/17 21:27 RPR Titer Nonreactive (NONREACTIVE) 05/25/17 07:50 labs noted Assessment: 05/25/17 15:53 Withdrawal sx. Plan: Continue detox
[2017-05-25] MEDS ORDERED: ALBUTEROL SO4 6.7 GM HFA INHALER IH PRN (15:55)
[2017-05-25] MEDS: THIAMINE HCL 100 MG TABLET (FP) PO SCH (22:17)
[2017-05-25] MEDS: QUEtiapine FUMARATE 50 MG TABLET PO SCH (22:17)
[2017-05-26] MEDS: diazePAM 5 MG TABLET PO PRN ×5 (03:11→23:51)
[2017-05-26] MEDS ORDERED: METHADONE HCL 5 MG TABLET (FOR DETOX USE ONLY) PO ONE (10:00)
[2017-05-26] MEDS: PRENATAL VITAMINS W/ FOLIC ACID TABLET (FP) PO SCH (10:37)
[2017-05-26] MEDS: NICOTINE 14 MG/24 HOURS TOPICAL PATCH TD SCH (10:37)
[2017-05-26] MEDS: NICOTINE POLACRILEX 2 MG GUM BUC PRN ×3 (10:39→23:55)
--- NOTE | 2017-05-26 11:25 | PN ---
BHS COWS - Scale Resting Pulse: 1= [place] 81-100 Sweatin=Flushed/Facial Moisture Restless Observation: 1= Difficult to Sit Still Pupil Size: 0= Normal to Room Light Bone or Joint Aches: 2= Severe Diffuse Aches Runny Nose/ Eye Tearin= Nasal Congestion GI Upset > 30mins: 0= None Tremor Observation of Outstretched Hands: 2= Slight Tremor Visible Yawning Observation: 2= >3x During Session Anxiety or Irritability: 2=Irritable/Anxious Goose Flesh Skin: 0=Smooth Skin COWS Score: 13 S Progress Note (SOAP) Subjective: agitation irritable sweats frequent urination i have a cyst under my arm Objective: 05/26/17 11:22 Vital Signs Temperature 97.3 F L 05/26/17 10:00 Pulse Rate 83 05/26/17 10:00 Respiratory Rate 18 05/26/17 10:00 Blood Pressure 118/74 05/26/17 10:00 O2 Sat by Pulse Oximetry (%) Laboratory Tests 05/24/17 05/25/17 05/25/17 21:27 07:50 07:50 WBC 7.1 D RBC 3.21 L Hgb 10.3 L D Hct 30.6 L MCV 95.3 MCH 32.1 MCHC 33.6 RDW 13.8 Plt Count 208 MPV 7.5 Sodium 140 Potassium 4.1 Chloride 105 Carbon Dioxide 29 Anion Gap 6 L BUN 8 Creatinine 0.6 Creat Clearance w eGFR > 60 Random Glucose 88 Calcium 8.9 Total Bilirubin 0.4 AST 12 L ALT 17 D Alkaline Phosphatase 50 Total Protein 6.3 L Albumin 3.4 Urine Color Yellow Urine Appearance Slcloudy Urine pH 6.0 Ur Specific [place] 1.020 Urine Protein Negative Urine Glucose (UA) Negative Urine Ketones Negative Urine Blood Negative Urine Nitrite Negative Urine Bilirubin Negative Urine Urobilinogen Negative Ur Leukocyte Esterase Negative RPR Titer 05/25/17 07:50 WBC RBC Hgb Hct MCV MCH MCHC RDW Plt Count MPV Sodium Potassium Chloride Carbon Dioxide Anion Gap BUN Creatinine Creat Clearance w eGFR Random Glucose Calcium Total Bilirubin AST ALT Alkaline Phosphatase Total Protein Albumin Urine Color Urine Appearance Urine pH Ur Specific [place] Urine Protein Urine Glucose (UA) Urine Ketones Urine Blood Urine Nitrite Urine Bilirubin Urine Urobilinogen Ur Leukocyte Esterase RPR Titer Nonreactive awake/alert ambulating no acute distress Assessment: 05/26/17 11:23 withdrawal sx u/a results show no UTI cyst to right side torso under arm noted Plan: continue detox increase fluids bactrin ds bid x 7days ordered encouraged warm compress to cyst
[2017-05-26] MEDS: hydrOXYzine PAMOATE 50 MG CAPSULE (FP) PO PRN ×2 (12:50→17:02)
[2017-05-26] MEDS: SULFAMETHOXAZOLE/TRIMETHOPRIM 800MG/160MG D.S. TABLET PO SCH ×2 (12:50→23:51)
--- NOTE | 2017-05-26 16:13 | CONSULT ---
[facility] Psychiatric Consult - Data Date of interview: 05/26/17 Admission source: [facility] Identifying data: This is 26 years old female with no psychiatric hospitalization hiostory intoxicated with: Opioids, Cannabis, Nicotine Substance Abuse History: - Smoking Cessation. Smoking history: Current every day smoker. Have you smoked in the past 12 months: Yes. Aproximately how many cigarettes per day: 10. Cigars Per Day: 0. Hx Chewing Tobacco Use: No. Initiated information on smoking cessation: Yes. 'Breaking Loose' booklet given : 05/24/17. - Substance & Tx. History. Hx Alcohol Use: No. Hx Substance Use: Yes. Substance Use Type: Opiates. Hx Substance Use Treatment: Yes. - Substances Abused. percocet. Route: Oral. Frequency: Daily. Amount used: 200mg. Age of first use: 22. Date of Last Use: 05/24/17. Khat. Route: Smoking. Frequency: Daily. Amount used: 5 joints. Age of first use: 15. Date of Last Use: 05/24/17 Medical History: UTI History, GERD, S/P Bariartric history Psychiatric History: Patient reports anxietyn and insomnia, reports taking prior to admission for anxiety and insomnia with good response : Seroquel 150mg po qhs Physical/Sexual Abuse/Trauma History: Denies Additional Comment: Seroquel 150mg po qhs Mental Status Exam - Mental Status Exam Alert and Oriented to: Person Cognitive Function: Fair Patient Appearance: Well Groomed Mood: Anxious Affect: Mood Congruent Patient Behavior: Cooperative Speech Pattern: Appropriate Voice Loudness: Normal Thought Process: Goal Oriented Thought Disorder: Being Controlled Hallucinations: Denies Suicidal Ideation: Denies Homicidal Ideation: Denies Insight/Judgement: Fair Sleep: Difficulty falling asleep Appetite: Fair Muscle strength/Tone: Normal Gait/Station: Normal Additional Comments: Seroquel 150mg po qhs Psychiatric Findings - Problem List ([place] 1, 2,3) (1) Nicotine dependence Current Visit: Yes Status: Acute Qualifiers: Nicotine product type: cigarettes Substance use status: uncomplicated Qualified Code(s): F17.210 - Nicotine dependence, cigarettes, uncomplicated (2) Cannabis dependence, uncomplicated Current Visit: Yes Status: Chronic (3) Opioid dependence with withdrawal Current Visit: Yes Status: Chronic (4) Drug-induced mood disorder Current Visit: No Status: Acute - Initial Treatment Plan Initial Treatment Plan: Seroquel 150mg po qhs
[2017-05-26] MEDS ORDERED: ONDANSETRON *ODT* 4 MG TABLET SL ONE (16:38)
[2017-05-26] MEDS: QUEtiapine FUMARATE 50 MG TABLET PO SCH ×2 (23:51)
[2017-05-26] MEDS: THIAMINE HCL 100 MG TABLET (FP) PO SCH (23:51)
[2017-05-27] MEDS: diazePAM 5 MG TABLET PO PRN ×3 (05:21→14:48)
[2017-05-27] MEDS ORDERED: METHADONE HCL 5 MG TABLET (FOR DETOX USE ONLY) PO ONE (10:00)
[2017-05-27] MEDS: PRENATAL VITAMINS W/ FOLIC ACID TABLET (FP) PO SCH (10:39)
[2017-05-27] MEDS: SULFAMETHOXAZOLE/TRIMETHOPRIM 800MG/160MG D.S. TABLET PO SCH ×2 (10:39→22:16)
[2017-05-27] MEDS: NICOTINE 14 MG/24 HOURS TOPICAL PATCH TD SCH (10:40)
[2017-05-27] MEDS: NICOTINE POLACRILEX 2 MG GUM BUC PRN ×2 (10:40→22:21)
--- NOTE | 2017-05-27 11:32 | PN ---
BHS Progress Note (SOAP) Subjective: nausea, sweats, interrupted sleep, anxiety, tremors Objective: 05/27/17 11:31 Vital Signs - 8 hr 05/27/17 05/27/17 06:58 10:33 Temperature 97.2 F L 97.2 F L Pulse Rate 200 H 96 H Respiratory 20 18 Rate Blood Pressure 94/60 134/71 Laboratory Tests 05/24/17 05/25/17 05/25/17 21:27 07:50 07:50 WBC 7.1 D RBC 3.21 L Hgb 10.3 L D Hct 30.6 L MCV 95.3 MCH 32.1 MCHC 33.6 RDW 13.8 Plt Count 208 MPV 7.5 Sodium 140 Potassium 4.1 Chloride 105 Carbon Dioxide 29 Anion Gap 6 L BUN 8 Creatinine 0.6 Creat Clearance w eGFR > 60 Random Glucose 88 Calcium 8.9 Total Bilirubin 0.4 AST 12 L ALT 17 D Alkaline Phosphatase 50 Total Protein 6.3 L Albumin 3.4 Urine Color Yellow Urine Appearance Slcloudy Urine pH 6.0 Ur Specific [place] 1.020 Urine Protein Negative Urine Glucose (UA) Negative Urine Ketones Negative Urine Blood Negative Urine Nitrite Negative Urine Bilirubin Negative Urine Urobilinogen Negative Ur Leukocyte Esterase Negative RPR Titer 05/25/17 07:50 WBC RBC Hgb Hct MCV MCH MCHC RDW Plt Count MPV Sodium Potassium Chloride Carbon Dioxide Anion Gap BUN Creatinine Creat Clearance w eGFR Random Glucose Calcium Total Bilirubin AST ALT Alkaline Phosphatase Total Protein Albumin Urine Color Urine Appearance Urine pH Ur Specific [place] Urine Protein Urine Glucose (UA) Urine Ketones Urine Blood Urine Nitrite Urine Bilirubin Urine Urobilinogen Ur Leukocyte Esterase RPR Titer Nonreactive Assessment: 05/27/17 11:31 withdrawal sx, Plan: cont detox, fluids
[2017-05-27] MEDS: hydrOXYzine PAMOATE 50 MG CAPSULE (FP) PO PRN ×2 (14:53→20:42)
[2017-05-27] MEDS ORDERED: CYCLOBENZAPRINE HCL 10 MG TABLET (FP) PO ONE (19:03)
[2017-05-27] MEDS: QUEtiapine FUMARATE 50 MG TABLET PO SCH (22:16)
[2017-05-27] MEDS: diphenhydrAMINE HCL 50 MG CAPSULE PO PRN (22:18)
[2017-05-27] MEDS: THIAMINE HCL 100 MG TABLET (FP) PO SCH (22:18)
[2017-05-28] MEDS ORDERED: METHADONE HCL 10 MG TABLET (FOR DETOX USE ONLY) PO ONE (10:00)
[2017-05-28] MEDS: PRENATAL VITAMINS W/ FOLIC ACID TABLET (FP) PO SCH (10:27)
[2017-05-28] MEDS: SULFAMETHOXAZOLE/TRIMETHOPRIM 800MG/160MG D.S. TABLET PO SCH ×2 (10:27→22:12)
[2017-05-28] MEDS: NICOTINE POLACRILEX 2 MG GUM BUC PRN (10:29)
--- NOTE | 2017-05-28 11:54 | PN ---
BHS Progress Note (SOAP) Subjective: anxiety sweats Objective: 05/28/17 11:54 Vital Signs Temperature 97.5 F L 05/28/17 10:00 Pulse Rate 88 05/28/17 10:00 Respiratory Rate 18 05/28/17 10:00 Blood Pressure 98/58 05/28/17 10:00 O2 Sat by Pulse Oximetry (%) awake/alert ambulating no acute distress Assessment: 05/28/17 11:54 withdrawal sx Plan: continue detox increase fluids d/c in am
[2017-05-28] MEDS: hydrOXYzine PAMOATE 50 MG CAPSULE (FP) PO PRN ×2 (15:03→22:13)
[2017-05-28] MEDS: NICOTINE 14 MG/24 HOURS TOPICAL PATCH TD SCH (15:04)
[2017-05-28] MEDS ORDERED: diazePAM 5 MG TABLET PO ONE (15:45)
[2017-05-28] MEDS: QUEtiapine FUMARATE 50 MG TABLET PO SCH (22:12)
[2017-05-28] MEDS: THIAMINE HCL 100 MG TABLET (FP) PO SCH (22:13)
[2017-05-29] MEDS ORDERED: METHADONE HCL 5 MG TABLET (FOR DETOX USE ONLY) PO ONE (06:00)
[2017-05-29] MEDS ORDERED: PHENAZOPYRIDINE HCL 100 MG TABLET (FP) PO ONE (09:02)
--- NOTE | 2017-05-29 09:02 | DS ---
[facility] Detox Discharge Summary Admission Date: 05/24/17 Discharge Date: 05/29/17 - History Present History: Cannabis Dependence, Opioid Dependence - Physical Exam Results Vital Signs: Vital Signs Temperature 97.2 F L 05/29/17 07:03 Pulse Rate 73 05/29/17 07:03 Respiratory Rate 18 05/29/17 07:03 Blood Pressure 101/59 05/29/17 07:03 O2 Sat by Pulse Oximetry (%) - Treatment Hospital Course: Detox Protocol Followed, Detoxed Safely, Responded well, Discharged Condition Good, Rehab Referral Accepted - Medication Discharge Medications: Ambulatory Orders Quetiapine Fumarate [Seroquel -] 100 mg PO HS 10/30/16 Quetiapine Fumarate [Seroquel] 100 mg PO HS #30 tablet 10/31/16 Quetiapine Fumarate [Seroquel] 150 mg PO HS #30 tab 05/26/17 - Diagnosis (1) Cannabis dependence, uncomplicated Current Visit: Yes Status: Chronic (2) Nicotine dependence Current Visit: Yes Status: Chronic Qualifiers: Nicotine product type: cigarettes Substance use status: uncomplicated Qualified Code(s): F17.210 - Nicotine dependence, cigarettes, uncomplicated (3) Opioid dependence with withdrawal Current Visit: Yes Status: Chronic (4) Drug-induced mood disorder Current Visit: No Status: Acute (5) UTI (urinary tract infection) Current Visit: Yes Status: Acute Qualifiers: Encounter type: initial encounter (6) GERD (gastroesophageal reflux disease) Current Visit: Yes Status: Chronic Qualifiers: Esophagitis presence: without esophagitis Qualified Code(s): K21.9 - Gastro-esophageal reflux disease without esophagitis (7) S/P bariatric surgery Current Visit: No Status: Suspected - AMA Did Patient Leave Against Medical Advice: No
[2017-05-29] MEDS ORDERED: MICONAZOLE NITRATE 14 GM/TUBE TUBE TP SCH (10:00)
[2017-05-29] MEDS: NICOTINE POLACRILEX 2 MG GUM BUC PRN (10:02)
[2017-05-29] MEDS: PRENATAL VITAMINS W/ FOLIC ACID TABLET (FP) PO SCH (10:02)
[2017-05-29 10:06] VITALS: BP 115/64; PULSE 98; TEMP 98.2
== END 2017-05-29 10:40 | disposition home or self-care (01) | DRG 773 ==
LOC: YASAS 15:58 → Y6N 18:00
PROVIDERS: ADMIT Internal Medicine Addiction Medicine; ATTEND Internal Medicine Addiction Medicine
PROC: HZ2ZZZZ Detoxification Services for Substance Abuse Treatment (ICD-10-PCS; principal; 2017-05-24)
DX: F11.23 Opioid dependence with withdrawal (principal); F11.20 Opioid dependence, uncomplicated; F17.210 Nicotine dependence, cigarettes, uncomplicated; F19.24 Other psychoactive substance dependence with psychoactive substance-induced mood disorder; N39.0 Urinary tract infection, site not specified; K21.9 Gastro-esophageal reflux disease without esophagitis; Z98.84 Bariatric surgery status
CPT/HCPCS: 36415; 80053; 81003; 85027; 86593; 93005; 93010